=== PATIENT | male | born 1940 | race Caucasian/White ===

== ENCOUNTER → 2018-02-14 | Outpatient (CLI) | payer OTHER, MEDICARE ==
[~2018-02-14] MED LIST: AVODART0.5 MG PO; BENADRYL25 MG PO; BUSPAR5 M1; COLACE50 MG PO; LISINOPRIL10 MG PO; LO-DOSE ASPIRIN81 M2 PO; MAGNESIUM SULF PO; MEDROL DOSEPAK4 MG PO; MIRALAX17 GM PO; NAFCIL 2 G2 GM/100 M IV; ONE DAILY1 EAC3 PO; PEPCID20 MG PO; PERCOCET 5/31 TABLET PO; POTASSIUM CITR10 MEQ PO; PRINIVIL20 MG PO; RISPERDAL0.25 M1; SEROQUEL50 MG PO; SERTRALINE HCL100 MG; TOPROL XL100 MG PO; VITAMIN D2000 UNI1 PO; ZOLOFT100 MG; ZOLOFT100 MG PO
== END | disposition home or self-care (01) ==
LOC: CDC 10:18
DX: Z01.810 Encounter for preprocedural cardiovascular examination (principal); K40.90 Unilateral inguinal hernia, without obstruction or gangrene, not specified as recurrent; I45.10 Unspecified right bundle-branch block; R94.31 Abnormal electrocardiogram [ECG] [EKG]
CPT/HCPCS: 93000

== ENCOUNTER 2018-02-19 08:47 | Day surgery (SDC) | payer OTHER ==
[~2018-02-19] VITALS: Ht 177.8 cm; Wt 87.0 kg
[2018-02-19 09:49] VITALS: BP 189/78
[2018-02-19] MEDS ORDERED: NORCO 5/3251 TABLET PO (12:52)
[2018-02-19 13:51] VITALS: BP 168/76
[2018-02-19 13:57] VITALS: BP 168/76
[2018-02-19 14:41] VITALS: BP 183/75
== END 2018-02-19 14:55 | disposition home or self-care (01) ==
LOC: SDC
PROC: 0YU60JZ Supplement Left Inguinal Region with Synthetic Substitute, Open Approach (ICD-10-PCS; principal; 2018-02-19)
DX: K40.90 Unilateral inguinal hernia, without obstruction or gangrene, not specified as recurrent (principal); I10 Essential (primary) hypertension; F32.9 Major depressive disorder, single episode, unspecified; Z79.82 Long term (current) use of aspirin; Z87.891 Personal history of nicotine dependence; Z88.0 Allergy status to penicillin; Z88.2 Allergy status to sulfonamides; Z87.442 Personal history of urinary calculi; Z86.14 Personal history of Methicillin resistant Staphylococcus aureus infection
CPT/HCPCS: 87641; C1781; J0690; J1100; J2405; J3010; S0020